=== PATIENT | female | born 1985 | race Caucasian/White ===

== ENCOUNTER 2017-09-12 18:20 | Emergency (ER) | payer BC ==
[~2017-09-12] VITALS: Ht 154.9 cm; Wt 170.1 kg
[~2017-09-12 18:20] MED LIST: LAMICTAL25 MG; LEVAQUIN500 MG PO; LEXAPRO10 MG; PROAIR HFA INH8.5 GM; SUDAFED30 MG
[2017-09-12 19:02] LABS: BASOPHILS % 0.4 % (0.0-1.0); EOSINOPHILS # (AUTO) 0.2 (0.0-0.4); HEMOGLOBIN 12.4 g/dL (12.0-16.0); LYMPHOCYTES # (AUTO) 2.5 (1.0-3.2); LYMPHOCYTES % 26.9 % (18.0-39.1); MEAN CORPUSCULAR HEMOGLOBIN 26.6 pg (28-32); MEAN CORPUSCULAR HGB CONC 31.8 g/dL (31-35); MEAN CORPUSCULAR VOLUME 83.5 fL (81-99); MONOCYTES # (AUTO) 0.5 (0.2-0.8); MONOCYTES % 5.1 % (4.4-11.3); NEUTROPHILS % 65.2 % (38.7-80.0); PLATELET COUNT 264 x10e3/uL (140-360); RED BLOOD COUNT 4.67 x10e6/uL (3.6-5.1); RED CELL DISTRIBUTION WIDTH 13.9 % (11.7-14.4)
[2017-09-12 19:18] LABS: ALANINE AMINOTRANSFERASE 18 IU/L (0-55); ALBUMIN 3.6 g/dL (3.5-5.0); ALKALINE PHOSPHATASE 75 IU/L (40-150); ANION GAP 13.2 mmol/L (8-16); BLOOD UREA NITROGEN 11 mg/dL (7-26); BUN/CREATININE RATIO 14 (6-25); CALCIUM 9.2 mg/dL (8.4-10.2); CARBON DIOXIDE 23 mmol/L (22-29); CHLORIDE 107 mmol/L (98-107); CREATININE, SERUM 0.76 mg/dL (0.57-1.11); EST GLOMERULAR FILTRATION RATE > 60 ML/MIN (60-); GLUCOSE 93 mg/dL (74-118); POTASSIUM 4.2 mmol/L (3.5-5.1); SODIUM 139 mmol/L (136-145)
[2017-09-12 19:19] LABS: AMYLASE 60 U/L (25-125); LIPASE 21 U/L (8-78)
[2017-09-12 20:53] LABS: BILIRUBIN,URINE NEGATIVE (NEGATIVE); KETONES,URINE NEGATIVE (NEGATIVE); LEUKOCYTE ESTERASE ,URINE NEGATIVE (NEGATIVE); NITRITE,URINE NEGATIVE (NEGATIVE); PROTEIN,URINE DIPSTICK NEGATIVE (NEGATIVE); URINE UROBILINOGEN 0.2 mg/dL (0.2 - 1)
[2017-09-12 20:56] LABS: CLARITY,URINE CLEAR (CLEAR); COLOR,URINE YELLOW (YELLOW)
[2017-09-12 21:00] LABS: PREGNANCY TEST, URINE NEGATIVE (NEGATIVE)
[2017-09-12 21:15] LABS: BACTERIA,URINE MODERATE /HPF; EPITHELIAL CELLS,URINE FEW /LPF; WBC,URINE (MAN) 0-5 /HPF (0-5)
--- NOTE | 2017-09-12 23:45 | Diagnostic Imaging Report ---
EXAM: CT ABDOMEN AND PELVIS with IV CONTRAST DATE: 09/12/2017 9:54 PM Time stamp on Exam: 2325 hours INDICATION: Right lower quadrant pain COMPARISON: None TECHNIQUE: The abdomen and pelvis were scanned using a multidetector helical scanner. Coronal and sagittal reformations were obtained. Routine protocol performed. IV Contrast: 100 cc of 7370 Oral Contrast: Water CTDIvol has been reviewed. It is below the limits set by the Radiation Protocol Committee (RPC). FINDINGS: LOWER THORAX: No consolidations LIVER: No masses BILIARY: Cholecystectomy. No ductal dilation. SPLEEN: No masses PANCREAS: No masses ADRENALS: No nodules KIDNEYS: Symmetric perfusion. No enhancing masses. No hydronephrosis. Punctate nonobstructing stone in the inferior pole of the left kidney. GI TRACT: No distention, wall thickening or evidence of obstruction. Normal appendix. VESSELS: Unremarkable PERITONEUM/RETROPERITONEUM: No free air or fluid LYMPH NODES: No lymphadenopathy REPRODUCTIVE ORGANS: Unremarkable BLADDER: Unremarkable SOFT TISSUES: Unremarkable BONES: No suspicious bone lesions. IMPRESSION: No CT findings to explain patient's right lower quadrant pain. No evidence of appendicitis. Signed by: Dr. Sushma Felipe M.D. on 09/12/2017 11:41 PM
[2017-09-13] MEDS ORDERED: SODIUM CHLORIDE 0.9% 50ML 50 ML ONE (00:22)
[2017-09-13] MEDS ORDERED: IOPAMIDOL 370 MG/ML 200 ML INFUS..BTL INJ ONE (00:22)
[2017-09-13 00:27] VITALS: BP 123/74
== END 2017-09-13 00:31 | disposition home or self-care (01) ==
LOC: ER 18:20
DX: R10.31 Right lower quadrant pain (principal); R11.2 Nausea with vomiting, unspecified; S39.011A Strain of muscle, fascia and tendon of abdomen, initial encounter; I10 Essential (primary) hypertension; K31.89 Other diseases of stomach and duodenum
CPT/HCPCS: 36415; 74177; 80053; 81001; 81025; 82150; 83690; 85025; 87086; 99283; Q9967

== ENCOUNTER 2018-06-04 12:40 | Observation (INO) | payer BC ==
[~2018-06-04] VITALS: Ht 154.9 cm; Wt 156.3 kg
[2018-06-04] MEDS ORDERED: SODIUM CHLORIDE 0.9% 1000ML 1,000 ML IV STA (12:53)
[2018-06-04] MEDS ORDERED: ASPIRIN 81 MG CHEW TAB PO ONE (13:00)
[2018-06-04] MEDS ORDERED: NITROGLYCERIN 0.4 MG SUBL SL PRN ×2 (13:00→17:15)
--- NOTE | 2018-06-04 13:33 | Diagnostic Imaging Report ---
EXAM: XR CHEST 1 VIEW DATE: 06/04/2018 12:53 PM INDICATION: Chest pain COMPARISON: None FINDINGS: Lines and Tubes: None Heart and Mediastinum: No acute cardiomediastinal findings. Lungs and Pleura: No significant pleural effusion, pneumothorax, or focal consolidation. Bones and Soft Tissues: No acute findings. IMPRESSION: 1. No acute cardiopulmonary findings. Signed by: Dr. Kahlil Melendez MD on 06/04/2018 1:29 PM
[2018-06-04 14:12] LABS: BASOPHILS % 0.4 % (0.0-1.0); EOSINOPHILS # (AUTO) 0.1 (0.0-0.4); EOSINOPHILS % 1.2 % (0.0-6.0); HEMATOCRIT 35.4 % (34.2-44.1); HEMOGLOBIN 11.8 g/dL (12.0-16.0); LYMPHOCYTES # (AUTO) 2.2 (1.0-3.2); LYMPHOCYTES % 24.9 % (18.0-39.1); MEAN CORPUSCULAR HEMOGLOBIN 28.8 pg (28-32); MEAN CORPUSCULAR HGB CONC 33.3 g/dL (31-35); MEAN CORPUSCULAR VOLUME 86.3 fL (81-99); MONOCYTES # (AUTO) 0.5 (0.2-0.8); MONOCYTES % 5.7 % (4.4-11.3); NEUTROPHILS # (AUTO) 6.1 (2.1-6.9); NEUTROPHILS % 67.2 % (38.7-80.0); PLATELET COUNT 278 x10e3/uL (140-360); RED CELL DISTRIBUTION WIDTH 12.8 % (11.7-14.4)
[2018-06-04 14:30] LABS: INR 1.14; PROTHROMBIN TIME 13.7 seconds (11.9-14.5)
[2018-06-04 14:31] LABS: PARTIAL THROMBOPLASTIN TIME 30.3 seconds (23.8-35.5)
[2018-06-04 14:37] LABS: ALANINE AMINOTRANSFERASE 17 IU/L (0-55); ALBUMIN 3.6 g/dL (3.5-5.0); ALBUMIN/GLOBULIN RATIO 1.1 (0.8-2.0); ALKALINE PHOSPHATASE 62 IU/L (40-150); ANION GAP 14.9 mmol/L (8-16); BLOOD UREA NITROGEN 9 mg/dL (7-26); BUN/CREATININE RATIO 12 (6-25); CALCIUM 9.3 mg/dL (8.4-10.2); CARBON DIOXIDE 24 mmol/L (22-29); CHLORIDE 103 mmol/L (98-107); CREATINE KINASE 62 IU/L (29-168); CREATININE, SERUM 0.73 mg/dL (0.57-1.11); EST GLOMERULAR FILTRATION RATE > 60 ML/MIN (60-); GLUCOSE 90 mg/dL (74-118); SODIUM 139 mmol/L (136-145)
[2018-06-04 14:52] LABS: POTASSIUM 2.9 mmol/L (3.5-5.1)
[2018-06-04] MEDS ORDERED: POTASSIUM CHLORIDE 20MEQ/15ML UDC PO ONE (15:00)
[2018-06-04] MEDS ORDERED: MORPHINE SULFATE 2 MG/ML SYR IV PRN (17:15)
[2018-06-04] MEDS ORDERED: ONDANSETRON HCL INJ 2 MG/ML VIAL IV PRN (17:15)
[2018-06-04 17:55] VITALS: BP 129/79
[2018-06-04 18:17] VITALS: BP 129/79
[2018-06-04] MEDS: SODIUM CHLORIDE 0.9% 1000ML 1,000 ML IV SCH (18:59)
[2018-06-04] MEDS: FAMOTIDINE 20 MG TAB PO SCH (18:59)
[2018-06-04] MEDS: NITROGLYCERIN 2% OINT 1 GM PKT TOP SCH (18:59)
[2018-06-04 19:25] VITALS: BP 113/64
[2018-06-04 20:27] LABS: CREATINE KINASE MB 0.3 ng/mL (0-5.0)
[2018-06-04] MEDS ORDERED: ACETAMINOPHEN 325 MG TAB PO PRN (21:45)
[2018-06-04] MEDS ORDERED: ATENOLOL 50 MG TAB PO SCH (21:45)
[2018-06-04] MEDS ORDERED: ACETAMINOPHEN 325 MG TAB ONE (22:15)
[2018-06-04] MEDS ORDERED: ATENOLOL 50 MG TAB ONE (22:15)
[2018-06-04] MEDS ORDERED: ATENOLOL50 MG PO (22:41)
[2018-06-05 00:23] VITALS: BP 92/54
[2018-06-05 04:00] VITALS: BP 102/56
[2018-06-05] MEDS: SODIUM CHLORIDE 0.9% 1000ML 1,000 ML IV SCH (04:10)
[2018-06-05 05:27] LABS: BASOPHILS % 0.4 % (0.0-1.0); EOSINOPHILS # (AUTO) 0.1 (0.0-0.4); EOSINOPHILS % 1.3 % (0.0-6.0); HEMATOCRIT 32.6 % (34.2-44.1); HEMOGLOBIN 10.5 g/dL (12.0-16.0); LYMPHOCYTES # (AUTO) 2.1 (1.0-3.2); LYMPHOCYTES % 30.4 % (18.0-39.1); MEAN CORPUSCULAR HEMOGLOBIN 28.5 pg (28-32); MEAN CORPUSCULAR HGB CONC 32.2 g/dL (31-35); MEAN CORPUSCULAR VOLUME 88.6 fL (81-99); MONOCYTES # (AUTO) 0.4 (0.2-0.8); MONOCYTES % 6.2 % (4.4-11.3); NEUTROPHILS # (AUTO) 4.1 (2.1-6.9); NEUTROPHILS % 61.3 % (38.7-80.0); PLATELET COUNT 225 x10e3/uL (140-360); RED BLOOD COUNT 3.68 x10e6/uL (3.6-5.1); RED CELL DISTRIBUTION WIDTH 13.1 % (11.7-14.4)
[2018-06-05] MEDS: NITROGLYCERIN 2% OINT 1 GM PKT TOP SCH ×2 (05:36)
[2018-06-05] MEDS: FAMOTIDINE 20 MG TAB PO SCH (05:36)
[2018-06-05 05:44] LABS: ANION GAP 13.1 mmol/L (8-16); BLOOD UREA NITROGEN 9 mg/dL (7-26); BUN/CREATININE RATIO 13 (6-25); CALCIUM 8.6 mg/dL (8.4-10.2); CARBON DIOXIDE 24 mmol/L (22-29); CHLORIDE 108 mmol/L (98-107); CHOL/HDL RATIO 4.4 (3.0-3.6); CHOLESTEROL 140 MD/DL (0-199); CREATININE, SERUM 0.68 mg/dL (0.57-1.11); EST GLOMERULAR FILTRATION RATE > 60 ML/MIN (60-); GLUCOSE 98 mg/dL (74-118); HDL CHOLESTEROL 32 MG/DL (40-60); LDL CHOLESTEROL 83 MG/DL (60-130); MAGNESIUM 1.8 MG/DL (1.3-2.1); POTASSIUM 3.1 mmol/L (3.5-5.1); SODIUM 142 mmol/L (136-145); TRIGLYCERIDES 123 MG/DL (0-149)
[2018-06-05 06:18] LABS: CREATINE KINASE MB 0.3 ng/mL (0-5.0)
[2018-06-05 07:20] VITALS: BP 121/73
[2018-06-05] MEDS ORDERED: POTASSIUM CHLORIDE 20 MEQ TAB CR PO SCH (09:00)
[2018-06-05] MEDS ORDERED: ASPIRIN 81 MG ENTERIC COATED PO SCH (09:00)
[2018-06-05 09:09] VITALS: BP 121/73
[2018-06-05] MEDS ORDERED: ATENOLOL 50 MG TAB PO SCH (10:15)
--- NOTE | 2018-06-05 11:29 | Consultation ---
DATE OF CONSULTATION: CARDIOLOGY CONSULTATION REFERRING PHYSICIAN: Dr. Correa. REASON FOR CONSULTATION: Chest pain. HISTORY OF PRESENT ILLNESS: This is a 33-year-old woman who has a history of morbid obesity, tachycardia/premature ventricular complexes on atenolol, asthma, and hypertension. She presented to the emergency department with chest discomfort. The patient states that her symptoms have been present for the approximately 3 to 4 days, are intermittent, occasionally with rest, occasionally with exertion, described as a heaviness with some tingling in her fingers and feet. Currently she is asymptomatic and feeling well. The patient was on phentermine at home and was told to cut this in half by her primary care provider when she started exhibiting symptoms. She has no history of myocardial infarctions, heart failure or syncopal episodes. She reportedly had an episode of tachycardia and premature ventricular complexes per self report and was placed on atenolol with relief. She states she had a prior stress test and echocardiogram done approximately 8 years ago, which were reportedly normal. Upon arrival here to the emergency department, the patient was noted to be hypokalemic with 3 sets of negative cardiac enzymes. REVIEW OF SYSTEMS: A 12-point review of systems was conducted and was negative other than that in the HPI. PAST MEDICAL HISTORY: Asthma, hypertension, morbid obesity, tachycardia, premature ventricular complexes. FAMILY HISTORY: No premature coronary artery disease or sudden cardiac . SOCIAL HISTORY: No illicit drug use, alcohol use or tobacco use. ALLERGIES: MULTIPLE. SEE ALLERGY LIST. MEDICATIONS: See medication reconciliation form. PAST SURGICAL HISTORY: None recent. PHYSICAL EXAMINATION VITAL SIGNS: She is afebrile. Heart rate is 73. Respirations are 18. Blood pressure 121/73. Oxygen saturation is 98% on room air. GENERAL: She is a morbidly obese, woman lying comfortably in bed. Alert and oriented times 3. HEAD: Normocephalic and atraumatic. EYES: The extraocular muscles are intact. Conjunctivae are clear. NECK: No JVD. No bruits. CARDIOVASCULAR: Regular rate and rhythm. Normal S1 and S2. No murmur is appreciated. LUNGS: Distant breath sounds due to body habitus. ABDOMEN: Soft, obese, nontender. EXTREMITIES: Trace edema. VASCULAR: There are 2+ pulses. SKIN: Warm, dry and intact. NEUROLOGIC: No focal deficits noted. Cranial nerves are grossly intact. PSYCHIATRIC: Normal mood and affect. LABORATORY DATA: White blood cell count of 6.7, hemoglobin 10.5, platelets 225. INR is 1.14. Current basic metabolic panel shows sodium 142, potassium 3.1, creatinine 0.68. Presenting potassium was 2.9, magnesium 1.8. Cardiac enzymes are negative times 3 sets. BNP is 15.7. LDL was 83. A 12-lead electrocardiogram shows normal sinus rhythm. Chest x-ray shows no acute cardiopulmonary abnormality. Preliminary 2-D echocardiogram report: Left ventricle appears normal in size with overall normal systolic function. The estimated left ventricular ejection fraction is 55% to 60%. No significant valvular abnormalities were visualized on limited images. IMPRESSION AND RECOMMENDATIONS 1. Precordial pain. The patient's symptoms are atypical and likely noncardiac in origin. Potentially, this could be related to her recent discontinuation of phentermine. She also has morbid obesity and some episodes of gastroesophageal reflux disease in the past. Her 12-lead electrocardiogram showed no ST changes, and she has 3 sets of negative cardiac enzymes. Her BNP was within normal limits. Her chest x-ray showed no cardiomegaly or pulmonary edema. Her 2-D echocardiogram shows preserved left ventricular systolic function. No further inpatient cardiac workup is needed at this point in time. 2. Cardiac arrhythmia. The patient states she had tachycardia and PVCs in the past. None reported on current admission. Would continue atenolol 25 mg b.i.d. 3. Morbid obesity. Discussed diet and exercise for weight loss with the patient. 4. Hypokalemia. Treatment per primary team and replace to a level greater than 4. Thank you for this consultation. The patient may be discharged from a cardiovascular standpoint with close outpatient followup with her primary care provider and myself for outpatient stress test. Job#: [id number]
[2018-06-05 12:00] VITALS: BP 130/65
[2018-06-05 16:00] VITALS: BP 123/57
[2018-06-06] MEDS ORDERED: ALBUTEROL SULFATE HFA 8GM INHALATION AEROSOL INH SCH (06:00)
== END 2018-06-05 16:45 | disposition home or self-care (01) ==
LOC: ER 12:40 → ERHOLD 17:25 → MED/SURG3 17:47
DX: R07.2 Precordial pain (principal); E87.6 Hypokalemia; I10 Essential (primary) hypertension; J45.909 Unspecified asthma, uncomplicated; E66.01 Morbid (severe) obesity due to excess calories; Z82.49 Family history of ischemic heart disease and other diseases of the circulatory system; I49.3 Ventricular premature depolarization; K21.9 Gastro-esophageal reflux disease without esophagitis; Z88.0 Allergy status to penicillin; Z88.2 Allergy status to sulfonamides; Z88.8 Allergy status to other drugs, medicaments and biological substances; Z68.44 Body mass index [BMI] 60.0-69.9, adult
CPT/HCPCS: 36415 ×2; 71045; 80048; 80053; 80061; 82550 ×2; 82553 ×2; 83735; 83880; 84484 ×2; 85025 ×2; 85610; 85730; 93005; 93306; 99284; G0378 ×2; J7030 ×2

== ENCOUNTER 2019-04-30 14:12 | Emergency (ER) | payer BC ==
[~2019-04-30] VITALS: Ht 154.9 cm; Wt 156.0 kg
[~2019-04-30 14:12] MED LIST changes: +ATENOLOL50 MG PO
--- NOTE | 2019-04-30 15:00 | NUR ---
PATIENT TO ROOM 11
[2019-04-30 15:20] LABS: BASOPHILS % 0.6 % (0.0-1.0); EOSINOPHILS # (AUTO) 0.2 (0.0-0.4); EOSINOPHILS % 2.9 % (0.0-6.0); HEMATOCRIT 36.9 % (34.2-44.1); HEMOGLOBIN 12.4 g/dL (12.0-16.0); LYMPHOCYTES # (AUTO) 1.7 (1.0-3.2); MEAN CORPUSCULAR HEMOGLOBIN 29.1 pg (28-32); MEAN CORPUSCULAR HGB CONC 33.6 g/dL (31-35); MEAN CORPUSCULAR VOLUME 86.6 fL (81-99); MONOCYTES # (AUTO) 0.6 (0.2-0.8); NEUTROPHILS # (AUTO) 4.6 (2.1-6.9); NEUTROPHILS % 64.1 % (38.7-80.0); PLATELET COUNT 248 x10e3/uL (140-360); RED BLOOD COUNT 4.26 x10e6/uL (3.6-5.1)
[2019-04-30 15:38] LABS: ALANINE AMINOTRANSFERASE 31 IU/L (0-55); ALBUMIN 3.5 g/dL (3.5-5.0); ALBUMIN/GLOBULIN RATIO 1.1 (0.8-2.0); ALKALINE PHOSPHATASE 78 IU/L (40-150); ANION GAP 15.8 mmol/L (8-16); BLOOD UREA NITROGEN 13 mg/dL (7-26); BUN/CREATININE RATIO 18 (6-25); CALCIUM 9.1 mg/dL (8.4-10.2); CARBON DIOXIDE 22 mmol/L (22-29); CHLORIDE 105 mmol/L (98-107); CREATININE, SERUM 0.73 mg/dL (0.57-1.11); EST GLOMERULAR FILTRATION RATE > 60 ML/MIN (60-); GLUCOSE 125 mg/dL (74-118); POTASSIUM 3.8 mmol/L (3.5-5.1); SODIUM 139 mmol/L (136-145)
[2019-04-30 15:40] LABS: BILIRUBIN,URINE NEGATIVE (NEGATIVE); CLARITY,URINE CLOUDY (CLEAR); COLOR,URINE ORANGE (YELLOW); KETONES,URINE NEGATIVE (NEGATIVE); LEUKOCYTE ESTERASE ,URINE SMALL (NEGATIVE); NITRITE,URINE POSITIVE (NEGATIVE); URINE UROBILINOGEN 4 mg/dL (0.2 - 1)
[2019-04-30 15:41] LABS: PROTEIN,URINE DIPSTICK 3+ (NEGATIVE)
[2019-04-30] MEDS ORDERED: KETOROLAC TROMETHAMINE 30 MG/ML VIAL IV STA (15:49)
[2019-04-30 15:54] LABS: BACTERIA,URINE MODERATE /HPF; EPITHELIAL CELLS,URINE RARE /LPF; RBC,URINE 21-50 /HPF (0-5)
[2019-04-30] MEDS ORDERED: SODIUM CHLORIDE 0.9% 1000ML 1,000 ML IV SCH (16:00)
--- NOTE | 2019-04-30 16:30 | Diagnostic Imaging Report ---
EXAM: CT Abdomen and Pelvis WITHOUT intravenous contrast INDICATION: Flank pain COMPARISON: CT abdomen pelvis of 09/12/2017 TECHNIQUE: Abdomen and pelvis were scanned utilizing a multidetector helical scanner from the lung base to the pubic symphysis without administration of IV contrast. Coronal and sagittal reformations were obtained. IV CONTRAST: None ORAL CONTRAST: None COMPLICATIONS: None RADIATION DOSE: Total DLP: 1305.1 mGy*cm Dose modulation, iterative reconstruction, and/or weight based adjustment of the mA/kV was utilized to reduce the radiation dose to as low as reasonably achievable. FINDINGS: Image quality is severely limited by patient body habitus as the patient touches the gantry on both sides resulting in significant artifact. LOWER THORAX: Normal. HEPATOBILIARY: No focal liver lesion. Status post cholecystectomy. SPLEEN: No splenomegaly. PANCREAS: No focal masses or ductal dilatation. ADRENALS: No adrenal nodules. KIDNEYS/URETERS: No hydronephrosis. Nonobstructing 4 mm left lower pole calculus. Left internal nephroureteral stent in good position. PELVIC ORGANS/BLADDER: Status post hysterectomy. PERITONEUM / RETROPERITONEUM: No free air or fluid. LYMPH NODES: No lymphadenopathy. VESSELS: Unremarkable. GI TRACT: No distention or wall thickening. BONES AND SOFT TISSUES: No acute osseous injury. No suspicious lytic or blastic lesions. IMPRESSION: Nonobstructive 4 mm left lower pole renal calculus. No hydronephrosis. Left internal nephroureteral stent in place. Signed by: Percy Samaniego MD on 04/30/2019 4:27 PM
== END 2019-04-30 17:22 | disposition home or self-care (01) ==
LOC: ER 14:12
DX: R30.0 Dysuria (principal); N30.91 Cystitis, unspecified with hematuria; I10 Essential (primary) hypertension
CPT/HCPCS: 36415; 74176; 80053; 81001; 81025; 85025; 87086; 87186; 99284; J1885; J7030

== ENCOUNTER 2020-03-13 15:32 | Emergency (ER) | payer BC ==
[~2020-03-13] VITALS: Ht 154.9 cm; Wt 156.0 kg
[2020-03-13 17:56] LABS: CLARITY,URINE SL CLOUDY (CLEAR); COLOR,URINE ORANGE (YELLOW)
[2020-03-13 17:57] LABS: BILIRUBIN,URINE SMALL (NEGATIVE); KETONES,URINE TRACE (NEGATIVE); LEUKOCYTE ESTERASE ,URINE NEGATIVE (NEGATIVE); NITRITE,URINE POSITIVE (NEGATIVE); PREGNANCY TEST, URINE NEGATIVE (NEGATIVE); PROTEIN,URINE DIPSTICK 1+ (NEGATIVE); URINE UROBILINOGEN 2 mg/dL (0.2 - 1)
[2020-03-13 18:11] LABS: BACTERIA,URINE RARE /HPF; EPITHELIAL CELLS,URINE MANY /LPF
--- NOTE | 2020-03-13 19:01 | Emergency Department Note ---
History of Present Illnes History of Present Illness Chief Complaint: Genitourinary History of Present Illness This is a 34 year old female with generalized L flank pain since Mo nday 03/10/2020. (+) Fevers. noted edema b/l UE and face yesterday . Historian: Patient Arrival Mode: Car Onset (how long ago): day(s) (4) Radiation: Reports flank (left flank ) Severity: moderate Onset quality: gradual Duration (how long): day(s) (4) Timing of current episode: constant Progression: worsening Chronicity: new Context: Reports recent illness Relieving factors: none Exacerbating factors: none Associated symptoms: Reports denies other symptoms Treatments prior to arrival: none Past Medical/Family History Physician Review I have reviewed the patient's past medical and family history. Any updates have been documented here. Past Medical History Recent Fever: No Clinical Suspicion of Infectio: No New/Unexplained Change in Ment: No Past Medical History: Hypertension, Asthma, Kidney Stones, UTI's, Migraines Other Medical History: ABD ULCER ASthma MORBID OBESTITY [id number] Past Surgical History: Cholecysctectomy, Hysterectomy, Other Surgery: C-SECTIONS SINUS SURGERY Social History Smoking Cessation: Never Smoker Alcohol Use: None Any Illegal Drug Use: No Other Last Tetanus: UTD Review of Systems Review of Systems Constitutional: Reports fever EENTM: Reports no symptoms Cardiovascular: Reports no symptoms Respiratory: Reports no symptoms Gastrointestinal: Reports no symptoms Genitourinary: Reports dysuria, Reports pain (L flank pain) Musculoskeletal: Reports no symptoms Integumentary: Reports no symptoms Neurological: Reports no symptoms Psychological: Reports no symptoms Endocrine: Reports no symptoms Hematological/Lymphatic: Reports no symptoms Physical Exam Related Data Allergies: Coded Allergies: cephalexin (Verified Allergy, Intermediate, HIVES, 04/30/19) erythromycin base (Verified Allergy, Intermediate, HIVES, 04/30/19) meloxicam (Verified Allergy, Intermediate, HIVES, 04/30/19) methylprednisolone (Verified Allergy, Intermediate, SWELLING, 04/30/19) Sulfa (Sulfonamide Antibiotics) (Verified Allergy, Mild, HIVES, 04/30/19) penicillin (Verified Allergy, Mild, HIVES, 04/30/19) sumatriptan (Verified Allergy, Unknown, 04/30/19) doxycycline (Verified Adverse Reaction, Mild, VOMITING, 04/30/19) Triage Vital Signs Vital Signs Date Time Temp Pulse Resp B/P (MAP) Pulse Ox O2 Delivery O2 Flow Rate FiO2 03/13/20 16:54 98.9 103 16 158/99 97 Vital signs reviewed: Yes Physical Exam CONSTITUTIONAL Constitutional: Present well-developed, Present well-nourished HENT HENT: Present normocephalic, Present atraumatic, Present oropharynx clear/moist, Present nose normal HENT L/R: Present left ext ear normal, Present right ext ear normal EYES Eyes: Reports PERRL, Reports conjunctivae normal NECK Neck: Present ROM normal PULMONARY Pulmonary: Present effort normal, Present breath sounds normal CARDIOVASCULAR Cardiovascular: Present regular rhythm, Present heart sounds normal, Present capillary refill normal, Present normal rate GASTROINTESTINAL Abdominal: Present soft, Present nontender, Present bowel sounds normal, Present left CVA tenderness GENITOURINARY Genitourinary: Present exam deferred SKIN Skin: Present warm, Present dry MUSCULOSKELETAL Musculoskeletal: Present ROM normal NEUROLOGICAL Neurological: Present alert, Present oriented x 3, Present no gross motor or sensory deficits PSYCHOLOGICAL Psychological: Present mood/affect normal, Present judgement normal Results Laboratory Laboratory Laboratory Tests Test 03/13/20 16:57 Urine Color White (YELLOW) Urine Clarity Sl cloudy (CLEAR) Urine pH 6 (5 - 7) Urine Specific [place] 1.025 (1.010-1.025) Urine Protein 1+ (NEGATIVE) Urine Glucose (UA) 1+ (NEGATIVE) Urine Ketones Trace (NEGATIVE) Urine Blood Negative (NEGATIVE) Urine Nitrite Positive (NEGATIVE) Urine Bilirubin Small (NEGATIVE) Urine Urobilinogen 2 mg/dL (0.2 - 1) Urine Leukocyte Esterase Negative (NEGATIVE) Urine RBC None /HPF (0-5) Urine WBC None /HPF (0-5) Urine Epithelial Cells Many /LPF (NONE) Urine Bacteria Rare /HPF (NONE) Urine Coarse Granular Casts 1-5 (0) Urine Test Negative (NEGATIVE) Lab results reviewed: Yes Imaging Imaging results reviewed: Yes Impressions [place] [id number] Patient Name: EZEQUIEL DUENAS MR #: [id number] : 1985 Age/Sex: 34/F Req #: [id number] Adm Physician: Ordered by: DAVEY BATISTA DO Report #: [id number] Location: ER Room/Bed: Procedure: [id number] CT/CT ABDOMEN/PELVIS WO Exam Date: 03/13/20 Exam Time: 1925 REPORT STATUS: Signed CT Abdomen and Pelvis without contrast INDICATION: Chronic UTI, history of stones and left ureteral stent, ^L flank pain ^[id number] ^1925 TECHNIQUE: Thin collimation axial images obtained from the diaphragm to the level of the pubic symphysis without nonionic intravenous contrast. Dose reduction techniques used: Automated exposure control, adjustment of the mAs and/or kVp according to patient size, standardized low-dose protocol, and/or iterative reconstruction technique. RADIATION DOSE: Total DLP: 2853.05 mGy*cm Estimated effective dose: (DLP x 0.015 x size factor) mSv CTDIvol has been reviewed. It is below the limits set by the Radiation Protocol Committee (RPC). COMPARISON: CT abdomen/pelvis 04/30/2019. ABDOMEN FINDINGS: Images are compromised due to patient's generous body habitus Lung Bases: Clear. The visualized portion of the mediastinum is normal. Liver: Decreased attenuation suggestive of steatosis. No mass. Gallbladder: Absent. No ductal dilatation. Pancreas: Normal attenuation without mass. Spleen: Normal size without mass. Adrenal Glands: No evidence for mass. Kidneys: Right: No renal calculus. No cortical mass or hydronephrosis Left: Lower pole calculus measures 3 mm. No cortical mass or hydronephrosis Lymph Nodes: No lymphadenopathy. Aorta: Normal in diameter. PELVIS FINDINGS: Bowel: Stomach: Normal. Small Bowel: Normal in caliber with normal wall thickness. Large Bowel: Normal in caliber with normal wall thickness. Appendix: Normal. Bladder: Normal. Ureters: Left ureteral stent has been removed. No ureteral dilatation or calculus. The uterus is absent. A cyst or dominant follicle in the left ovary is no longer visualized. Peritoneum/retroperitoneum: No free fluid or fluid collection. Bones: Unremarkable for age. IMPRESSION: 1. Left intrarenal calculus. No obstructive uropathy. 2. No evidence for bowel obstruction or inflammation. 3. Steatosis. Signed by: Dr. Sally Biggs MD on 03/13/2020 7:37 PM Dictated By: SALLY BIGGS MD 34 Transcribed By: AMY on 03/13/201936 COPY TO: DAVEY BATISTA DO~ Assessment & Plan Medical Decision Making MDM Left flank pain CT abd/pelvis : non-acute Diff dx : pyelonephritis, kidney stone, diverticulitis, cancer, Assessment & Plan Final Impression: (1) Left flank discomfort (2) Edema of both upper arms Depart Disposition: HOME, SELF-CARE Last Vital Signs Date Time Temp Pulse Resp B/P (MAP) Pulse Ox O2 Delivery O2 Flow Rate FiO2 03/13/20 16:54 98.9 103 16 158/99 97 Home Meds Reported Medications Atenolol (ATENOLOL) 50 Mg Tablet, 25 MG PO Q12H 06/04/18 Albuterol Sulf* (PROAIR HFA INHALER*) 8.5 Gm Inh 01/01/14 Medications in the ED Ketorolac Tromethamine 60 mg ONCE ONCE IM Last administered on 03/13/20at 19:10; Admin Dose 60 MG; Start 03/13/20 at 19:15; Stop 03/13/20 at 19:23; Status DC Ketorolac Tromethamine STK-MED ONCE .ROUTE ; Start 03/13/20 at 19:13; Stop 03/13/20 at 19:08; Status DC DAVEY BATISTA DO Mar 13, 2020 19:01
[2020-03-13] MEDS ORDERED: KETOROLAC TROMETHAMINE 30 MG/ML VIAL ONE (19:13)
[2020-03-13 19:14] LABS: BASOPHILS % 0.4 % (0.0-1.0); EOSINOPHILS # (AUTO) 0.2 (0.0-0.4); EOSINOPHILS % 1.9 % (0.0-6.0); HEMATOCRIT 39.4 % (34.2-44.1); HEMOGLOBIN 12.5 g/dL (12.0-16.0); LYMPHOCYTES # (AUTO) 2.4 (1.0-3.2); LYMPHOCYTES % 24.2 % (18.0-39.1); MEAN CORPUSCULAR HEMOGLOBIN 28.2 pg (28-32); MEAN CORPUSCULAR HGB CONC 31.7 g/dL (31-35); MEAN CORPUSCULAR VOLUME 88.7 fL (81-99); MONOCYTES # (AUTO) 0.7 (0.2-0.8); MONOCYTES % 6.8 % (4.4-11.3); NEUTROPHILS # (AUTO) 6.7 (2.1-6.9); NEUTROPHILS % 66.3 % (38.7-80.0); PLATELET COUNT 258 x10e3/uL (140-360); RED BLOOD COUNT 4.44 x10e6/uL (3.6-5.1); RED CELL DISTRIBUTION WIDTH 13.2 % (11.7-14.4)
[2020-03-13] MEDS ORDERED: KETOROLAC TROMETHAMINE 60 MG/2 ML VIAL IM ONE (19:15)
[2020-03-13 19:28] LABS: ALANINE AMINOTRANSFERASE 17 IU/L (0-55); ALBUMIN 3.6 g/dL (3.5-5.0); ALKALINE PHOSPHATASE 77 IU/L (40-150); ANION GAP 15.1 mmol/L (8-16); BLOOD UREA NITROGEN 14 mg/dL (7-26); BUN/CREATININE RATIO 19 (6-25); CALCIUM 9.1 mg/dL (8.4-10.2); CARBON DIOXIDE 20 mmol/L (22-29); CHLORIDE 108 mmol/L (98-107); CREATININE, SERUM 0.74 mg/dL (0.57-1.11); EST GLOMERULAR FILTRATION RATE > 60 ML/MIN (60-); GLUCOSE 94 mg/dL (74-118); POTASSIUM 4.1 mmol/L (3.5-5.1); SODIUM 139 mmol/L (136-145)
--- NOTE | 2020-03-13 19:40 | Diagnostic Imaging Report ---
CT Abdomen and Pelvis without contrast INDICATION: Chronic UTI, history of stones and left ureteral stent, ^L flank pain ^20200313 ^192 TECHNIQUE: Thin collimation axial images obtained from the diaphragm to the level of the pubic symphysis without nonionic intravenous contrast. Dose reduction techniques used: Automated exposure control, adjustment of the mAs and/or kVp according to patient size, standardized low-dose protocol, and/or iterative reconstruction technique. RADIATION DOSE: Total DLP: 2853.05 mGy*cm Estimated effective dose: (DLP x 0.015 x size factor) mSv CTDIvol has been reviewed. It is below the limits set by the Radiation Protocol Committee (RPC). COMPARISON: CT abdomen/pelvis 04/30/2019. ABDOMEN FINDINGS: Images are compromised due to patient's generous body habitus Lung Bases: Clear. The visualized portion of the mediastinum is normal. Liver: Decreased attenuation suggestive of steatosis. No mass. Gallbladder: Absent. No ductal dilatation. Pancreas: Normal attenuation without mass. Spleen: Normal size without mass. Adrenal Glands: No evidence for mass. Kidneys: Right: No renal calculus. No cortical mass or hydronephrosis Left: Lower pole calculus measures 3 mm. No cortical mass or hydronephrosis Lymph Nodes: No lymphadenopathy. Aorta: Normal in diameter. PELVIS FINDINGS: Bowel: Stomach: Normal. Small Bowel: Normal in caliber with normal wall thickness. Large Bowel: Normal in caliber with normal wall thickness. Appendix: Normal. Bladder: Normal. Ureters: Left ureteral stent has been removed. No ureteral dilatation or calculus. The uterus is absent. A cyst or dominant follicle in the left ovary is no longer visualized. Peritoneum/retroperitoneum: No free fluid or fluid collection. Bones: Unremarkable for age. IMPRESSION: 1. Left intrarenal calculus. No obstructive uropathy. 2. No evidence for bowel obstruction or inflammation. 3. Steatosis. Signed by: Dr. Celestino Biggs MD on 03/13/2020 7:37 PM
[2020-03-13 20:19] VITALS: BP 128/83
== END 2020-03-13 20:25 | disposition home or self-care (01) ==
LOC: ER 15:32
DX: M54.5 Low back pain (principal); R60.9 Edema, unspecified; N20.0 Calculus of kidney; I10 Essential (primary) hypertension; E66.01 Morbid (severe) obesity due to excess calories
CPT/HCPCS: 36415; 74176; 80053; 81001; 81025; 83880; 85025; 99284; J1885

== ENCOUNTER 2021-10-15 14:07 | Emergency (ER) | payer BC ==
[~2021-10-15] VITALS: Ht 154.9 cm; Wt 156.0 kg
[2021-10-15 14:43] LABS: BASOPHILS % 0.5 % (0.0-1.0); EOSINOPHILS # (AUTO) 0.2 (0.0-0.4); EOSINOPHILS % 2.6 % (0.0-6.0); HEMATOCRIT 39.6 % (34.2-44.1); HEMOGLOBIN 12.3 g/dL (12.0-16.0); LYMPHOCYTES # (AUTO) 1.7 (1.0-3.2); LYMPHOCYTES % 25.9 % (18.0-39.1); MEAN CORPUSCULAR HEMOGLOBIN 29.1 pg (28-32); MEAN CORPUSCULAR HGB CONC 31.1 g/dL (31-35); MEAN CORPUSCULAR VOLUME 93.8 fL (81-99); MONOCYTES # (AUTO) 0.4 (0.2-0.8); MONOCYTES % 5.9 % (4.4-11.3); NEUTROPHILS # (AUTO) 4.2 (2.1-6.9); NEUTROPHILS % 64.8 % (38.7-80.0); PLATELET COUNT 266 x10e3/uL (140-360); RED BLOOD COUNT 4.22 x10e6/uL (3.6-5.1); RED CELL DISTRIBUTION WIDTH 14.5 % (11.7-14.4)
[2021-10-15 14:59] LABS: ALBUMIN 3.7 g/dL (3.5-5.0); ANION GAP 13.4 mmol/L (8-16); CALCIUM 9.2 mg/dL (8.4-10.2); CREATININE, SERUM 0.76 mg/dL (0.57-1.11); POTASSIUM 4.4 mmol/L (3.5-5.1)
[2021-10-15 15:00] LABS: LIPASE 23 U/L (8-78)
[2021-10-15 17:06] LABS: CLARITY,URINE CLEAR (CLEAR); COLOR,URINE YELLOW (YELLOW); KETONES,URINE NEGATIVE (NEGATIVE); LEUKOCYTE ESTERASE ,URINE NEGATIVE (NEGATIVE); NITRITE,URINE NEGATIVE (NEGATIVE); PROTEIN,URINE DIPSTICK NEGATIVE (NEGATIVE); URINE UROBILINOGEN 0.2 mg/dL (0.2 - 1)
[2021-10-15 17:22] LABS: BACTERIA,URINE MODERATE /HPF; EPITHELIAL CELLS,URINE MANY /LPF
[2021-10-15] MEDS ORDERED: DICYCLOMINE HCL20 MG PO (17:30)
[2021-10-15] MEDS ORDERED: ONDANSETRON HCL8 MG PO (17:30)
== END 2021-10-15 17:36 | disposition home or self-care (01) ==
LOC: ER 15:13
DX: R05.9 Cough, unspecified (principal); J18.9 Pneumonia, unspecified organism; R11.0 Nausea; R10.31 Right lower quadrant pain; I10 Essential (primary) hypertension; J45.909 Unspecified asthma, uncomplicated; E66.01 Morbid (severe) obesity due to excess calories
CPT/HCPCS: 36415; 74176; 80053; 81001; 83690; 84702; 85025; 99284

== ENCOUNTER 2022-06-02 22:39 | Inpatient (IN) | payer BC ==
[~2022-06-02] VITALS: Ht 154.9 cm; Wt 171.5 kg
[~2022-06-02 22:39] MED LIST changes: +DICYCLOMINE HCL20 MG PO; +ONDANSETRON HCL8 MG PO
[2022-06-02 23:20] LABS: BASOPHILS # (AUTO) 0.1 (0.0-0.1); BASOPHILS % 0.4 % (0.0-1.0); EOSINOPHILS # (AUTO) 0.2 (0.0-0.4); EOSINOPHILS % 1.3 % (0.0-6.0); HEMATOCRIT 36.9 % (34.2-44.1); HEMOGLOBIN 11.4 g/dL (12.0-16.0); LYMPHOCYTES # (AUTO) 1.4 (1.0-3.2); LYMPHOCYTES % 10.5 % (18.0-39.1); MEAN CORPUSCULAR HEMOGLOBIN 27.4 pg (28-32); MEAN CORPUSCULAR HGB CONC 30.9 g/dL (31-35); MEAN CORPUSCULAR VOLUME 88.7 fL (81-99); MONOCYTES # (AUTO) 0.9 (0.2-0.8); MONOCYTES % 6.8 % (4.4-11.3); NEUTROPHILS % 80.2 % (38.7-80.0); PLATELET COUNT 394 x10e3/uL (140-360); RED BLOOD COUNT 4.16 x10e6/uL (3.6-5.1); RED CELL DISTRIBUTION WIDTH 13.6 % (11.7-14.4)
[2022-06-02 23:25] LABS: INR 1.06; PROTHROMBIN TIME 14.8 seconds (11.9-14.5)
[2022-06-02 23:26] LABS: PARTIAL THROMBOPLASTIN TIME 29.8 seconds (23.8-35.5)
[2022-06-02] MEDS ORDERED: LEVOFLOXACIN 500MG/D5W 100ML 100 ML IV ONE (23:30)
[2022-06-02] MEDS ORDERED: SODIUM CHLORIDE 0.9% 1000ML 1,000 ML IV ONE (23:30)
[2022-06-02] MEDS ORDERED: ACETAMINOPHEN 325 MG TAB PO ONE (23:30)
[2022-06-02 23:32] LABS: ALBUMIN/GLOBULIN RATIO 0.6 (0.8-2.0); CALCIUM 9.3 mg/dL (8.4-10.2); CREATININE, SERUM 0.85 mg/dL (0.57-1.11)
[2022-06-02] MEDS ORDERED: ONDANSETRON HCL INJ 2MG/ML 2ML 2 MG/ML VIAL IV STA (23:32)
[2022-06-02] MEDS ORDERED: Vancomycin IV 1 GM in SODIUM CHLORIDE 0.9% 250ML 250 ML IV SCH (23:45)
[2022-06-02] MEDS ORDERED: FENTANYL CITRATE/PF 100MCG/2 ML INJ IV ONE (23:45)
[2022-06-03] VITALS (14 sets, daily range): BP systolic 83–120; BP diastolic 50–87
[2022-06-03] MEDS ORDERED: IOPAMIDOL 370 MG/ML 100 ML INFUS..BTL INJ ONE (01:38)
[2022-06-03 02:24] LABS: CLARITY,URINE CLEAR (CLEAR); COLOR,URINE YELLOW (YELLOW); KETONES,URINE NEGATIVE (NEGATIVE); LEUKOCYTE ESTERASE ,URINE NEGATIVE (NEGATIVE); NITRITE,URINE NEGATIVE (NEGATIVE); PROTEIN,URINE DIPSTICK NEGATIVE (NEGATIVE)
[2022-06-03 02:36] LABS: BACTERIA,URINE FEW /HPF; EPITHELIAL CELLS,URINE FEW /LPF; MUCUS,URINE MODERATE (RARE); RBC,URINE 0-5 /HPF (0-5); WBC,URINE (MAN) 0-5 /HPF (0-5)
[2022-06-03] MEDS: SODIUM CHLORIDE 0.9% 1000ML 1,000 ML IV SCH ×4 (03:23→21:15)
[2022-06-03] MEDS: METRONIDAZOLE 500MG/NS 100ML 100 ML IV SCH ×3 (05:56→18:06)
[2022-06-03] MEDS ORDERED: ALLOPURINOL100 MG PO (06:00)
[2022-06-03] MEDS: Morphine 4mg INJECTION 4 MG/ML INJ IV PRN ×3 (06:16→20:35)
[2022-06-03] MEDS ORDERED: OXYBUTYNIN CHLOR5 MG PO (06:26)
[2022-06-03] MEDS ORDERED: WELLBUTRIN XL300 MG PO (06:26)
[2022-06-03] MEDS ORDERED: HYDROXYZINE HCL10 MG PO (06:26)
[2022-06-03] MEDS: ONDANSETRON HCL INJ 2MG/ML 2ML 2 MG/ML VIAL IV PRN (11:32)
[2022-06-03] MEDS ORDERED: LIDOCAINE JELLY 2% 10ML URO-JET ONE (13:12)
[2022-06-03] MEDS ORDERED: BUPIVACAINE HC 0.75% PF 10ML VIAL INJ ONE (13:13)
[2022-06-03] MEDS ORDERED: FENTANYL CITRATE/PF 100MCG/2 ML INJ ONE ×2 (13:20→14:52)
[2022-06-03] MEDS ORDERED: MIDAZOLAM HCL 2 MG/2 ML VIAL ONE (13:20)
[2022-06-03] MEDS ORDERED: SODIUM CHLORIDE 0.9% 1000ML 1,000 ML IV SCH ×4 (14:45)
[2022-06-03] MEDS ORDERED: ATENOLOL 50 MG TAB PO SCH ×4 (14:45)
[2022-06-03] MEDS ORDERED: HYDROMORPHONE 1MG/1ML INJ ONE (15:14)
[2022-06-03] MEDS: ATENOLOL 50 MG TAB PO SCH ×2 (15:15→21:00)
[2022-06-03] MEDS ORDERED: Morphine 2mg Syringe 2 MG/ML SYR ONE (16:58)
[2022-06-03] MEDS ORDERED: ACETAMINOPHEN/CODEINE 300MG - 30MG TAB PO SCH ×4 (18:00)
[2022-06-03] MEDS: ACETAMINOPHEN/CODEINE 300MG - 30MG TAB PO SCH (18:06)
[2022-06-03] MEDS: LEVOFLOXACIN 750MG/D5W 150ML 150 ML IV SCH (21:23)
[2022-06-03] MEDS: LOPERAMIDE HCL 2 MG CAP PO SCH (21:23)
[2022-06-03] MEDS ORDERED: LOPERAMIDE HCL 2 MG CAP PO SCH ×4 (22:00)
[2022-06-03] MEDS: HYDROMORPHONE 1MG/1ML INJ IV PRN (23:10)
[2022-06-04] VITALS (22 sets, daily range): BP systolic 95–121; BP diastolic 54–76
[2022-06-04] MEDS: METRONIDAZOLE 500MG/NS 100ML 100 ML IV SCH ×5 (00:08→23:38)
[2022-06-04] MEDS: ACETAMINOPHEN/CODEINE 300MG - 30MG TAB PO SCH ×5 (00:08→23:32)
[2022-06-04] MEDS: SODIUM CHLORIDE 0.9% 1000ML 1,000 ML IV SCH ×3 (02:46→23:38)
[2022-06-04] MEDS: HYDROMORPHONE 1MG/1ML INJ IV PRN ×4 (03:34→15:59)
[2022-06-04] MEDS: LOPERAMIDE HCL 2 MG CAP PO SCH ×3 (05:54→22:00)
[2022-06-04 07:03] LABS: BASOPHILS % 0.3 % (0.0-1.0); EOSINOPHILS % 0.5 % (0.0-6.0); HEMATOCRIT 27.1 % (34.2-44.1); HEMOGLOBIN 8.1 g/dL (12.0-16.0); LYMPHOCYTES # (AUTO) 1.2 (1.0-3.2); LYMPHOCYTES % 19.2 % (18.0-39.1); MEAN CORPUSCULAR HEMOGLOBIN 27.2 pg (28-32); MEAN CORPUSCULAR HGB CONC 29.9 g/dL (31-35); MEAN CORPUSCULAR VOLUME 90.9 fL (81-99); MONOCYTES # (AUTO) 0.4 (0.2-0.8); MONOCYTES % 6.2 % (4.4-11.3); NEUTROPHILS # (AUTO) 4.7 (2.1-6.9); NEUTROPHILS % 71.9 % (38.7-80.0); PLATELET COUNT 284 x10e3/uL (140-360); RED BLOOD COUNT 2.98 x10e6/uL (3.6-5.1); RED CELL DISTRIBUTION WIDTH 13.5 % (11.7-14.4)
[2022-06-04 07:23] LABS: ALBUMIN 2.3 g/dL (3.5-5.0); ALBUMIN/GLOBULIN RATIO 0.6 (0.8-2.0); ANION GAP 14.7 mmol/L (8-16); CALCIUM 8.1 mg/dL (8.4-10.2); CREATININE, SERUM 0.59 mg/dL (0.57-1.11); POTASSIUM 3.7 mmol/L (3.5-5.1)
[2022-06-04] MEDS: BUPROPION HCL 150 MG TABCR PO SCH (08:45)
[2022-06-04] MEDS: ATENOLOL 50 MG TAB PO SCH ×2 (08:45→21:00)
[2022-06-04] MEDS: FLUTICASONE PROPIONATE NASAL SPRAY NS SCH (15:49)
[2022-06-04] MEDS: LEVOFLOXACIN 750MG/D5W 150ML 150 ML IV SCH (21:32)
[2022-06-05] VITALS (8 sets, daily range): BP systolic 101–111; BP diastolic 54–65
[2022-06-05] MEDS: HYDROMORPHONE 1MG/1ML INJ IV PRN ×4 (00:51→15:50)
[2022-06-05] MEDS: ONDANSETRON HCL INJ 2MG/ML 2ML 2 MG/ML VIAL IV PRN ×2 (02:56→14:07)
[2022-06-05] MEDS: METRONIDAZOLE 500MG/NS 100ML 100 ML IV SCH ×3 (05:37→17:14)
[2022-06-05] MEDS: ACETAMINOPHEN/CODEINE 300MG - 30MG TAB PO SCH ×3 (05:37→18:00)
[2022-06-05] MEDS: LOPERAMIDE HCL 2 MG CAP PO SCH ×3 (05:37→21:18)
[2022-06-05] MEDS: SODIUM CHLORIDE 0.9% 1000ML 1,000 ML IV SCH ×4 (05:38→15:50)
[2022-06-05 07:45] LABS: BASOPHILS # (AUTO) 0.1 (0.0-0.1); BASOPHILS % 0.9 % (0.0-1.0); EOSINOPHILS # (AUTO) 0.2 (0.0-0.4); EOSINOPHILS % 2.6 % (0.0-6.0); HEMATOCRIT 26.1 % (34.2-44.1); HEMOGLOBIN 8.2 g/dL (12.0-16.0); LYMPHOCYTES # (AUTO) 1.5 (1.0-3.2); LYMPHOCYTES % 25.4 % (18.0-39.1); MEAN CORPUSCULAR HEMOGLOBIN 27.6 pg (28-32); MEAN CORPUSCULAR HGB CONC 31.4 g/dL (31-35); MEAN CORPUSCULAR VOLUME 87.9 fL (81-99); MONOCYTES # (AUTO) 0.3 (0.2-0.8); MONOCYTES % 5.8 % (4.4-11.3); NEUTROPHILS # (AUTO) 3.6 (2.1-6.9); NEUTROPHILS % 61.5 % (38.7-80.0); PLATELET COUNT 292 x10e3/uL (140-360); RED BLOOD COUNT 2.97 x10e6/uL (3.6-5.1); RED CELL DISTRIBUTION WIDTH 13.7 % (11.7-14.4)
[2022-06-05 08:04] LABS: ANION GAP 12.3 mmol/L (8-16); CALCIUM 7.9 mg/dL (8.4-10.2); CREATININE, SERUM 0.58 mg/dL (0.57-1.11); POTASSIUM 3.3 mmol/L (3.5-5.1)
[2022-06-05] MEDS: ATENOLOL 50 MG TAB PO SCH ×2 (08:50→21:23)
[2022-06-05] MEDS: BUPROPION HCL 150 MG TABCR PO SCH (08:50)
[2022-06-05] MEDS: FLUTICASONE PROPIONATE NASAL SPRAY NS SCH (08:51)
[2022-06-05 11:19] LABS: ALBUMIN 2.4 g/dL (3.5-5.0); BILIRUBIN,DIRECT 0.2 mg/dL (0.0-0.5)
[2022-06-05] MEDS ORDERED: KCL 20 MEQ PACKET/ ORAL SOLN PO ONE (15:10)
[2022-06-05] MEDS: CEFTRIAXONE 2 GM in SODIUM CHLORIDE 0.9% 100 ML IV SCH (15:50)
[2022-06-05] MEDS ORDERED: SODIUM CHLORIDE 0.9% 100 ML ONE (15:59)
[2022-06-06] VITALS (9 sets, daily range): BP systolic 96–118; BP diastolic 51–75
[2022-06-06] MEDS: SODIUM CHLORIDE 0.9% 1000ML 1,000 ML IV SCH ×4 (04:09→18:05)
[2022-06-06] MEDS: HYDROMORPHONE 1MG/1ML INJ IV PRN ×3 (04:15→23:33)
[2022-06-06 06:13] LABS: ALBUMIN 2.5 g/dL (3.5-5.0); ALBUMIN/GLOBULIN RATIO 0.7 (0.8-2.0); ANION GAP 17.8 mmol/L (8-16); CALCIUM 8.4 mg/dL (8.4-10.2); CREATININE, SERUM 0.63 mg/dL (0.57-1.11); POTASSIUM 3.8 mmol/L (3.5-5.1)
[2022-06-06] MEDS: LOPERAMIDE HCL 2 MG CAP PO SCH ×3 (06:15→22:16)
[2022-06-06] MEDS: ACETAMINOPHEN/CODEINE 300MG - 30MG TAB PO SCH ×4 (06:15→18:05)
[2022-06-06] MEDS: METRONIDAZOLE 500MG/NS 100ML 100 ML IV SCH ×4 (06:15→18:05)
[2022-06-06 08:17] LABS: BASOPHILS % 0.5 % (0.0-1.0); EOSINOPHILS # (AUTO) 0.1 (0.0-0.4); EOSINOPHILS % 2.1 % (0.0-6.0); HEMATOCRIT 24.2 % (34.2-44.1); HEMOGLOBIN 7.2 g/dL (12.0-16.0); LYMPHOCYTES # (AUTO) 1.4 (1.0-3.2); LYMPHOCYTES % 24.9 % (18.0-39.1); MEAN CORPUSCULAR HEMOGLOBIN 27.6 pg (28-32); MEAN CORPUSCULAR HGB CONC 29.8 g/dL (31-35); MEAN CORPUSCULAR VOLUME 92.7 fL (81-99); MONOCYTES # (AUTO) 0.4 (0.2-0.8); MONOCYTES % 6.1 % (4.4-11.3); NEUTROPHILS # (AUTO) 3.5 (2.1-6.9); NEUTROPHILS % 61.1 % (38.7-80.0); PLATELET COUNT 289 x10e3/uL (140-360); RED BLOOD COUNT 2.61 x10e6/uL (3.6-5.1)
[2022-06-06] MEDS: BUPROPION HCL 150 MG TABCR PO SCH (08:23)
[2022-06-06] MEDS: CEFTRIAXONE 2 GM in SODIUM CHLORIDE 0.9% 100 ML IV SCH (08:23)
[2022-06-06] MEDS: ATENOLOL 50 MG TAB PO SCH ×2 (08:24→21:00)
[2022-06-06] MEDS: FLUTICASONE PROPIONATE NASAL SPRAY NS SCH (09:00)
[2022-06-06] MEDS: ONDANSETRON HCL INJ 2MG/ML 2ML 2 MG/ML VIAL IV PRN ×2 (11:14→23:33)
[2022-06-07] VITALS (7 sets, daily range): BP systolic 104–119; BP diastolic 49–70
[2022-06-07] MEDS: METRONIDAZOLE 500MG/NS 100ML 100 ML IV SCH ×4 (00:55→18:05)
[2022-06-07] MEDS: ACETAMINOPHEN/CODEINE 300MG - 30MG TAB PO SCH ×2 (00:55→06:42)
[2022-06-07] MEDS: HYDROMORPHONE 1MG/1ML INJ IV PRN ×5 (05:45→22:24)
[2022-06-07] MEDS: ONDANSETRON HCL INJ 2MG/ML 2ML 2 MG/ML VIAL IV PRN ×2 (05:45→12:58)
[2022-06-07] MEDS: SODIUM CHLORIDE 0.9% 1000ML 1,000 ML IV SCH ×3 (05:46→18:11)
[2022-06-07] MEDS: LOPERAMIDE HCL 2 MG CAP PO SCH (05:49)
[2022-06-07 05:56] LABS: BASOPHILS % 0.6 % (0.0-1.0); EOSINOPHILS # (AUTO) 0.1 (0.0-0.4); EOSINOPHILS % 1.9 % (0.0-6.0); HEMATOCRIT 27.9 % (34.2-44.1); LYMPHOCYTES # (AUTO) 1.7 (1.0-3.2); LYMPHOCYTES % 25.1 % (18.0-39.1); MEAN CORPUSCULAR HGB CONC 28.7 g/dL (31-35); MEAN CORPUSCULAR VOLUME 94.3 fL (81-99); MONOCYTES # (AUTO) 0.4 (0.2-0.8); MONOCYTES % 5.8 % (4.4-11.3); NEUTROPHILS # (AUTO) 4.2 (2.1-6.9); NEUTROPHILS % 60.5 % (38.7-80.0); PLATELET COUNT 284 x10e3/uL (140-360); RED BLOOD COUNT 2.96 x10e6/uL (3.6-5.1); RED CELL DISTRIBUTION WIDTH 14.1 % (11.7-14.4)
[2022-06-07 06:19] LABS: ALBUMIN 2.4 g/dL (3.5-5.0); ALBUMIN/GLOBULIN RATIO 0.9 (0.8-2.0); ANION GAP 13.4 mmol/L (8-16); CALCIUM 7.7 mg/dL (8.4-10.2); CREATININE, SERUM 0.57 mg/dL (0.57-1.11); POTASSIUM 3.4 mmol/L (3.5-5.1)
[2022-06-07] MEDS: CEFTRIAXONE 2 GM in SODIUM CHLORIDE 0.9% 100 ML IV SCH (09:09)
[2022-06-07] MEDS: ATENOLOL 50 MG TAB PO SCH ×2 (09:13→21:22)
[2022-06-07] MEDS: BUPROPION HCL 150 MG TABCR PO SCH (09:13)
[2022-06-07] MEDS: FLUTICASONE PROPIONATE NASAL SPRAY NS SCH (10:57)
[2022-06-07] MEDS ORDERED: POTASSIUM CHLORIDE 10MEQ EA PO ONE (17:45)
[2022-06-08] VITALS: BP_SYST 102; BP_SYST 125; BP_DIAS 62; BP_DIAS 64
[2022-06-08] MEDS: METRONIDAZOLE 500MG/NS 100ML 100 ML IV SCH ×3 (00:38→13:01)
[2022-06-08] MEDS: SODIUM CHLORIDE 0.9% 1000ML 1,000 ML IV SCH ×3 (00:38→14:46)
[2022-06-08] MEDS: HYDROMORPHONE 1MG/1ML INJ IV PRN ×4 (03:04→14:01)
[2022-06-08 04:38] VITALS: BP 101/54
[2022-06-08 05:48] LABS: BASOPHILS % 0.5 % (0.0-1.0); EOSINOPHILS # (AUTO) 0.2 (0.0-0.4); EOSINOPHILS % 2.4 % (0.0-6.0); HEMATOCRIT 28.4 % (34.2-44.1); HEMOGLOBIN 8.5 g/dL (12.0-16.0); LYMPHOCYTES # (AUTO) 1.8 (1.0-3.2); LYMPHOCYTES % 21.7 % (18.0-39.1); MEAN CORPUSCULAR HEMOGLOBIN 27.7 pg (28-32); MEAN CORPUSCULAR HGB CONC 29.9 g/dL (31-35); MEAN CORPUSCULAR VOLUME 92.5 fL (81-99); MONOCYTES # (AUTO) 0.4 (0.2-0.8); MONOCYTES % 5.4 % (4.4-11.3); NEUTROPHILS # (AUTO) 5.1 (2.1-6.9); NEUTROPHILS % 62.9 % (38.7-80.0); PLATELET COUNT 320 x10e3/uL (140-360); RED BLOOD COUNT 3.07 x10e6/uL (3.6-5.1); RED CELL DISTRIBUTION WIDTH 14.1 % (11.7-14.4)
[2022-06-08 06:21] LABS: ANION GAP 10.5 mmol/L (8-16); CREATININE, SERUM 0.55 mg/dL (0.57-1.11); POTASSIUM 3.5 mmol/L (3.5-5.1)
[2022-06-08 08:00] VITALS: BP 101/54
[2022-06-08 08:04] VITALS: BP 93/55
[2022-06-08] MEDS: ONDANSETRON HCL INJ 2MG/ML 2ML 2 MG/ML VIAL IV PRN ×2 (08:45→14:07)
[2022-06-08] MEDS: ATENOLOL 50 MG TAB PO SCH (09:00)
[2022-06-08] MEDS: CEFTRIAXONE 2 GM in SODIUM CHLORIDE 0.9% 100 ML IV SCH (09:12)
[2022-06-08] MEDS: FLUTICASONE PROPIONATE NASAL SPRAY NS SCH (09:12)
[2022-06-08] MEDS: BUPROPION HCL 150 MG TABCR PO SCH (09:14)
[2022-06-08 12:00] VITALS: BP 103/54
[2022-06-08 15:53] VITALS: BP 97/58
== END 2022-06-08 16:58 | disposition home or self-care (01) | DRG 357 ==
LOC: ER 23:00 → ERHOLD 06-03 01:27 → MED/SURG2 06-03 03:18 → ICU 06-03 16:55 → MED/SURG2 06-04 18:54
PROC: 0JB90ZZ Excision of Buttock Subcutaneous Tissue and Fascia, Open Approach (ICD-10-PCS; principal; 2022-06-03 13:20)
PROC: 02HV33Z Insertion of Infusion Device into Superior Vena Cava, Percutaneous Approach (ICD-10-PCS; 2022-06-05)
DX: K61.31 Horseshoe abscess (principal); I96 Gangrene, not elsewhere classified; Z68.45 Body mass index [BMI] 70 or greater, adult; Z20.822 Contact with and (suspected) exposure to COVID-19; E87.8 Other disorders of electrolyte and fluid balance, not elsewhere classified; E66.01 Morbid (severe) obesity due to excess calories; J45.909 Unspecified asthma, uncomplicated; Z88.1 Allergy status to other antibiotic agents; Z88.8 Allergy status to other drugs, medicaments and biological substances; B96.20 Unspecified Escherichia coli [E. coli] as the cause of diseases classified elsewhere; G43.909 Migraine, unspecified, not intractable, without status migrainosus; D64.9 Anemia, unspecified
CPT/HCPCS: 36415; 36569; 71045; 74177; 80048; 80053; 80076; 81001; 83605; 85025; 85610; 85730; 86850; 86900; 87040; 87071; 87075; 87186; 87205; 94799; 96360; 96361; 99251; 99284; J0696; J1170; J1956; J2250; J2270; J2405; J3010; J3370; J7030; J7050; Q9967

== ENCOUNTER 2022-06-12 19:14 | Inpatient (IN) | payer BC ==
[~2022-06-12] VITALS: Ht 154.9 cm; Wt 171.5 kg
[~2022-06-12 19:14] MED LIST changes: +ALLOPURINOL100 MG PO; +HYDROXYZINE HCL10 MG PO; +OXYBUTYNIN CHLOR5 MG PO; +WELLBUTRIN XL300 MG PO
[2022-06-12 21:55] LABS: BASOPHILS % 0.5 % (0.0-1.0); EOSINOPHILS # (AUTO) 0.2 (0.0-0.4); EOSINOPHILS % 3.2 % (0.0-6.0); HEMATOCRIT 30.5 % (34.2-44.1); HEMOGLOBIN 9.1 g/dL (12.0-16.0); LYMPHOCYTES # (AUTO) 2.1 (1.0-3.2); LYMPHOCYTES % 28.8 % (18.0-39.1); MEAN CORPUSCULAR HEMOGLOBIN 27.3 pg (28-32); MEAN CORPUSCULAR HGB CONC 29.8 g/dL (31-35); MEAN CORPUSCULAR VOLUME 91.6 fL (81-99); MONOCYTES # (AUTO) 0.4 (0.2-0.8); MONOCYTES % 5.6 % (4.4-11.3); NEUTROPHILS # (AUTO) 4.5 (2.1-6.9); NEUTROPHILS % 61.1 % (38.7-80.0); PLATELET COUNT 252 x10e3/uL (140-360); RED BLOOD COUNT 3.33 x10e6/uL (3.6-5.1); RED CELL DISTRIBUTION WIDTH 15.6 % (11.7-14.4)
[2022-06-12 22:02] LABS: INR 0.95; PROTHROMBIN TIME 13.6 seconds (11.9-14.5)
[2022-06-12 22:03] LABS: PARTIAL THROMBOPLASTIN TIME 30.5 seconds (23.8-35.5)
[2022-06-12 22:13] LABS: ALBUMIN 3.1 g/dL (3.5-5.0); ALBUMIN/GLOBULIN RATIO 1.2 (0.8-2.0); ANION GAP 18.1 mmol/L (8-16); CALCIUM 8.8 mg/dL (8.4-10.2); CREATININE, SERUM 0.67 mg/dL (0.57-1.11); POTASSIUM 4.1 mmol/L (3.5-5.1)
[2022-06-12] MEDS ORDERED: HEPARIN 25,000 UNIT DRIP IV ONE (22:19)
[2022-06-12] MEDS: SODIUM CHLORIDE 0.9% 1000ML 1,000 ML IV SCH (22:20)
[2022-06-12] MEDS: HEPARIN 25,000 UNIT 1,500 UNIT in DEXTROSE 5% 250ML 250 ML IV SCH (22:29)
[2022-06-12] MEDS: ONDANSETRON HCL INJ 2MG/ML 2ML 2 MG/ML VIAL IV PRN (22:37)
[2022-06-12] MEDS: Morphine 4mg INJECTION 4 MG/ML INJ IV PRN (22:37)
[2022-06-13] VITALS (8 sets, daily range): BP systolic 107–142; BP diastolic 66–85
[2022-06-13] MEDS: ONDANSETRON HCL INJ 2MG/ML 2ML 2 MG/ML VIAL IV PRN ×3 (03:54→21:21)
[2022-06-13] MEDS: Morphine 4mg INJECTION 4 MG/ML INJ IV PRN (03:54)
[2022-06-13] MEDS ORDERED: ATENOLOL25 MG PO (04:23)
[2022-06-13] MEDS ORDERED: HYDROXYZINE HCL25 MG PO (04:23)
[2022-06-13] MEDS: SODIUM CHLORIDE 0.9% 1000ML 1,000 ML IV SCH ×3 (05:28→21:27)
[2022-06-13 05:38] LABS: BASOPHILS % 0.6 % (0.0-1.0); EOSINOPHILS # (AUTO) 0.2 (0.0-0.4); EOSINOPHILS % 3.3 % (0.0-6.0); HEMATOCRIT 28.9 % (34.2-44.1); HEMOGLOBIN 8.7 g/dL (12.0-16.0); LYMPHOCYTES # (AUTO) 2.2 (1.0-3.2); LYMPHOCYTES % 33.2 % (18.0-39.1); MEAN CORPUSCULAR HEMOGLOBIN 27.3 pg (28-32); MEAN CORPUSCULAR HGB CONC 30.1 g/dL (31-35); MEAN CORPUSCULAR VOLUME 90.6 fL (81-99); MONOCYTES # (AUTO) 0.4 (0.2-0.8); MONOCYTES % 5.8 % (4.4-11.3); NEUTROPHILS # (AUTO) 3.7 (2.1-6.9); PLATELET COUNT 226 x10e3/uL (140-360); RED BLOOD COUNT 3.19 x10e6/uL (3.6-5.1); RED CELL DISTRIBUTION WIDTH 15.5 % (11.7-14.4)
[2022-06-13 06:03] LABS: ALBUMIN 2.9 g/dL (3.5-5.0); ANION GAP 18.7 mmol/L (8-16); CALCIUM 8.4 mg/dL (8.4-10.2); CREATININE, SERUM 0.67 mg/dL (0.57-1.11); POTASSIUM 3.7 mmol/L (3.5-5.1)
[2022-06-13] MEDS ORDERED: HYDROCODONE/APAP 10MG-325MG TAB PO PRN (09:45)
[2022-06-13] MEDS: CEFTRIAXONE 2 GM in SODIUM CHLORIDE 0.9% 100 ML IV SCH (13:12)
[2022-06-13] MEDS: HYDROMORPHONE 2MG/ML 2 MG/ML ML IV PRN ×2 (17:16→21:22)
[2022-06-13] MEDS: HEPARIN 25,000 UNIT 1,500 UNIT in DEXTROSE 5% 250ML 250 ML IV SCH (21:28)
[2022-06-14] VITALS (8 sets, daily range): BP systolic 112–148; BP diastolic 61–85
[2022-06-14 01:09] LABS: INR 0.94; PROTHROMBIN TIME 13.4 seconds (11.9-14.5)
[2022-06-14] MEDS: ONDANSETRON HCL INJ 2MG/ML 2ML 2 MG/ML VIAL IV PRN ×5 (01:56→20:12)
[2022-06-14] MEDS: HYDROMORPHONE 2MG/ML 2 MG/ML ML IV PRN ×5 (01:56→20:12)
[2022-06-14] MEDS: SODIUM CHLORIDE 0.9% 1000ML 1,000 ML IV SCH ×2 (05:20→22:15)
[2022-06-14] MEDS: CEFTRIAXONE 2 GM in SODIUM CHLORIDE 0.9% 100 ML IV SCH (08:37)
[2022-06-14] MEDS ORDERED: ALBUTEROL SULFATE HFA 8GM INHALATION AEROSOL INH PRN (13:00)
[2022-06-14] MEDS ORDERED: DICYCLOMINE HCL 20 MG TAB PO PRN (13:00)
[2022-06-14] MEDS ORDERED: SUMATRIPTAN SUCCINATE 6 MG/0.5 ML VIAL SC ONE ×2 (13:00→15:00)
[2022-06-14] MEDS ORDERED: HYDROXYZINE HCL 25 MG TAB PO SCH (13:00)
[2022-06-14] MEDS ORDERED: ALBUTEROL SULF 0.083% NEB SOLN 3 ML NEB NEB PRN (13:15)
[2022-06-14] MEDS: ALLOPURINOL 100 MG TAB PO SCH (14:11)
[2022-06-14] MEDS: OXYBUTYNIN CHLORIDE 5 MG TAB PO SCH (14:11)
[2022-06-14] MEDS: BUPROPION HCL 150 MG TABCR PO SCH (14:12)
[2022-06-14] MEDS: ATENOLOL 50 MG TAB PO SCH ×2 (14:12→22:15)
[2022-06-14] MEDS: HYDROXYZINE HCL 10 MG TAB PO SCH (19:21)
[2022-06-14] MEDS: HEPARIN 25,000 UNIT 1,500 UNIT in DEXTROSE 5% 250ML 250 ML IV SCH (19:21)
[2022-06-15] MEDS: ONDANSETRON HCL INJ 2MG/ML 2ML 2 MG/ML VIAL IV PRN ×4 (00:58→13:52)
[2022-06-15] MEDS: HYDROMORPHONE 2MG/ML 2 MG/ML ML IV PRN ×4 (00:58→13:52)
[2022-06-15] MEDS: HYDROXYZINE HCL 10 MG TAB PO SCH ×2 (01:30→13:52)
[2022-06-15] MEDS: SODIUM CHLORIDE 0.9% 1000ML 1,000 ML IV SCH (05:41)
[2022-06-15] MEDS: HEPARIN 25,000 UNIT 1,500 UNIT in DEXTROSE 5% 250ML 250 ML IV SCH (08:21)
[2022-06-15 08:22] VITALS: BP 117/59
[2022-06-15 08:23] VITALS: BP 117/59
[2022-06-15] MEDS: BUPROPION HCL 150 MG TABCR PO SCH (08:42)
[2022-06-15] MEDS: ATENOLOL 50 MG TAB PO SCH (08:43)
[2022-06-15] MEDS: OXYBUTYNIN CHLORIDE 5 MG TAB PO SCH (08:43)
[2022-06-15] MEDS: ALLOPURINOL 100 MG TAB PO SCH (08:43)
[2022-06-15] MEDS: CEFTRIAXONE 2 GM in SODIUM CHLORIDE 0.9% 100 ML IV SCH (08:44)
[2022-06-15 11:46] VITALS: BP 112/62
[2022-06-15 15:25] VITALS: BP 100/61
[2022-06-15] MEDS ORDERED: ELIQUIS5 MG PO ×2 (16:05→16:06)
[2022-06-15] MEDS ORDERED: CEFUROXIME500 MG PO (16:10)
== END 2022-06-15 16:43 | disposition home or self-care (01) | DRG 300 ==
LOC: ER 19:25 → ERHOLD 21:07 → MED/SURG2 06-13 02:44
DX: I82.621 Acute embolism and thrombosis of deep veins of right upper extremity (principal); Z68.45 Body mass index [BMI] 70 or greater, adult; E66.01 Morbid (severe) obesity due to excess calories; Z88.1 Allergy status to other antibiotic agents; Z88.0 Allergy status to penicillin; Z88.2 Allergy status to sulfonamides; Z91.018 Allergy to other foods; I10 Essential (primary) hypertension; Z20.822 Contact with and (suspected) exposure to COVID-19; Z98.890 Other specified postprocedural states
CPT/HCPCS: 36415; 80053; 85025; 85610; 85730; 93306; 93971; 94799; 96361; 99251; 99284; J0696; J2270; J2405; J3030; J3410; J7030; J7050

== ENCOUNTER 2022-06-17 14:37 | Emergency (ER) | payer BC ==
[~2022-06-17] VITALS: Ht 154.9 cm; Wt 171.5 kg
[~2022-06-17 14:37] MED LIST changes: +ATENOLOL25 MG PO; +CEFUROXIME500 MG PO; +ELIQUIS5 MG PO; +HYDROXYZINE HCL25 MG PO
[2022-06-17 16:40] VITALS: BP 111/63
== END 2022-06-17 16:33 | disposition home or self-care (01) ==
LOC: ER 14:43
DX: M79.621 Pain in right upper arm (principal); I82.621 Acute embolism and thrombosis of deep veins of right upper extremity; I10 Essential (primary) hypertension; J45.909 Unspecified asthma, uncomplicated; E66.01 Morbid (severe) obesity due to excess calories
CPT/HCPCS: 93971; 99283

== ENCOUNTER 2023-03-17 21:40 | Emergency (ER) | payer BC ==
[~2023-03-17] VITALS: Ht 154.9 cm; Wt 171.5 kg
[2023-03-17] MEDS ORDERED: ONDANSETRON HCL INJ 2MG/ML 2ML 2 MG/ML VIAL IV STA (21:44)
[2023-03-17] MEDS ORDERED: KETOROLAC TROMETHAMINE 30 MG/ML VIAL IV STA (21:44)
[2023-03-17 22:00] LABS: BASOPHILS % 0.4 % (0.0-1.0); EOSINOPHILS # (AUTO) 0.1 (0.0-0.4); EOSINOPHILS % 0.8 % (0.0-6.0); HEMATOCRIT 38.6 % (34.2-44.1); HEMOGLOBIN 12.3 g/dL (12.0-16.0); LYMPHOCYTES # (AUTO) 2.5 (1.0-3.2); LYMPHOCYTES % 24.1 % (18.0-39.1); MEAN CORPUSCULAR HEMOGLOBIN 27.6 pg (28-32); MEAN CORPUSCULAR HGB CONC 31.9 g/dL (31-35); MEAN CORPUSCULAR VOLUME 86.5 fL (81-99); MONOCYTES # (AUTO) 0.5 (0.2-0.8); MONOCYTES % 4.9 % (4.4-11.3); NEUTROPHILS # (AUTO) 7.3 (2.1-6.9); NEUTROPHILS % 69.6 % (38.7-80.0); PLATELET COUNT 278 x10e3/uL (140-360); RED BLOOD COUNT 4.46 x10e6/uL (3.6-5.1)
[2023-03-17 22:07] LABS: CLARITY,URINE CLEAR (CLEAR); COLOR,URINE YELLOW (YELLOW); KETONES,URINE 1+ (NEGATIVE); LEUKOCYTE ESTERASE ,URINE NEGATIVE (NEGATIVE); NITRITE,URINE NEGATIVE (NEGATIVE); PROTEIN,URINE DIPSTICK NEGATIVE (NEGATIVE); URINE UROBILINOGEN 0.2 mg/dL (0.2 - 1)
[2023-03-17 22:14] LABS: ANION GAP 13.8 mmol/L (8-16); CALCIUM 9.6 mg/dL (8.4-10.2); CREATININE, SERUM 0.82 mg/dL (0.57-1.11); POTASSIUM 3.8 mmol/L (3.5-5.1)
[2023-03-17 22:14] LABS: BACTERIA,URINE FEW /HPF; EPITHELIAL CELLS,URINE FEW /LPF; RBC,URINE 0-5 /HPF (0-5); WBC,URINE (MAN) 0-5 /HPF (0-5)
[2023-03-18] MEDS ORDERED: ONDANSETRON ODT4 MG PO (00:07)
[2023-03-18 00:18] VITALS: BP 104/70; O2SAT 100
== END 2023-03-18 00:19 | disposition home or self-care (01) ==
LOC: ER 21:50
DX: R10.32 Left lower quadrant pain (principal); N20.0 Calculus of kidney; R11.0 Nausea; R16.1 Splenomegaly, not elsewhere classified; I10 Essential (primary) hypertension; J45.909 Unspecified asthma, uncomplicated; E66.01 Morbid (severe) obesity due to excess calories; Z86.718 Personal history of other venous thrombosis and embolism
CPT/HCPCS: 36415; 74176; 80048; 81001; 81025; 85025; 99283; J1885; J2405

== ENCOUNTER 2024-07-26 11:29 | Emergency (ER) | payer BC ==
[~2024-07-26] VITALS: Ht 154.9 cm; Wt 77.6 kg
[~2024-07-26 11:29] MED LIST changes: +FLOMAX0.4 MG PO; +HYDROCODON-ACE1 EAC9; +MACROBID 100 M100 MG PO; +ONDANSETRON ODT4 MG PO
[2024-07-26 11:51] VITALS: TEMP 98.2
[2024-07-26] MEDS: DIAZEPAM 5 MG TAB PO ONE (12:20)
[2024-07-26] MEDS: ONDANSETRON HCL 4 MG ORAL DISINTEGRATING TAB PO ONE (12:20)
[2024-07-26] MEDS: KETOROLAC TROMETHAMINE 30 MG/ML VIAL IM ONE (12:21)
[2024-07-26] MEDS ORDERED: METHOCARBAMOL750 MG PO (14:46)
[2024-07-26 15:21] VITALS: PULSE 87; RESP 16; O2SAT 100
== END 2024-07-26 15:19 | disposition home or self-care (01) ==
LOC: ER 11:43
DX: S16.1XXA Strain of muscle, fascia and tendon at neck level, initial encounter (principal); M54.6 Pain in thoracic spine; V43.52XA Car driver injured in collision with other type car in traffic accident, initial encounter; Y92.488 Other paved roadways as the place of occurrence of the external cause; I10 Essential (primary) hypertension; J45.909 Unspecified asthma, uncomplicated; E66.01 Morbid (severe) obesity due to excess calories; Z87.442 Personal history of urinary calculi; Z86.718 Personal history of other venous thrombosis and embolism
CPT/HCPCS: 70450; 72125; 72131; 99283; J1885; Q0162

== ENCOUNTER → 2024-10-05 | Outpatient (REF) | payer BC ==
[~2024-10-05] MED LIST changes: +LIDOCAINE HCL 1% 30ML-PF VIAL ONE; +METHOCARBAMOL750 MG PO
== END ==
LOC: US 09:01
PROVIDERS: ATTEND Family Medicine
DX: E04.1 Nontoxic single thyroid nodule (principal)
CPT/HCPCS: 10005; 88172; 88173; J2003; 88305

== ENCOUNTER 2025-01-25 13:32 | Emergency (ER) | payer BC ==
[~2025-01-25] VITALS: Ht 154.9 cm; Wt 77.6 kg
[~2025-01-25 13:32] MED LIST changes: -LIDOCAINE HCL 1% 30ML-PF VIAL ONE
[2025-01-25 13:41] VITALS: PULSE 102; RESP 20; TEMP 97.5
[2025-01-25 13:55] LABS: BASOPHILS # (AUTO) 0.1 (0.0-0.1); EOSINOPHILS # (AUTO) 0.2 (0.0-0.4); EOSINOPHILS % 2.8 % (0.0-6.0); HEMATOCRIT 38.1 % (34.2-44.1); HEMOGLOBIN 12.5 g/dL (12.0-16.0); LYMPHOCYTES # (AUTO) 2.2 (1.0-3.2); LYMPHOCYTES % 28.1 % (18.0-39.1); MEAN CORPUSCULAR HEMOGLOBIN 31.1 pg (28-32); MEAN CORPUSCULAR HGB CONC 32.8 g/dL (31-35); MEAN CORPUSCULAR VOLUME 94.8 fL (81-99); MONOCYTES # (AUTO) 0.5 (0.2-0.8); MONOCYTES % 6.7 % (4.4-11.3); NEUTROPHILS # (AUTO) 4.7 (2.1-6.9); NEUTROPHILS % 60.8 % (38.7-80.0); PLATELET COUNT 308 x10e3/uL (140-360); RED BLOOD COUNT 4.02 x10e6/uL (3.6-5.1); RED CELL DISTRIBUTION WIDTH 12.1 % (11.7-14.4); WHITE BLOOD COUNT 7.73 x10e3/uL (4.8-10.8)
[2025-01-25 14:16] LABS: ALBUMIN 3.9 g/dL (3.5-5.0); ALBUMIN/GLOBULIN RATIO 1.3 (0.8-2.0); ANION GAP 16.5 mmol/L (8-16); BILIRUBIN,TOTAL 0.6 mg/dL (0.2-1.2); CALCIUM 9.7 mg/dL (8.4-10.2); CREATININE, SERUM 0.65 mg/dL (0.57-1.11); POTASSIUM 4.5 mmol/L (3.5-5.1); TOTAL PROTEIN 6.9 g/dL (6.5-8.1)
[2025-01-25] MEDS: FENTANYL CITRATE/PF 100MCG/2 ML INJ IV PRN (14:44)
[2025-01-25] MEDS ORDERED: IOPAMIDOL 370 MG/ML 100 ML INFUS..BTL INJ ONE (15:07)
[2025-01-25 16:32] VITALS: BP 117/76; PULSE 82; RESP 17; TEMP 97.8; O2SAT 100
== END 2025-01-25 16:34 | disposition home or self-care (01) ==
LOC: ER 13:48
DX: G89.18 Other acute postprocedural pain (principal); R10.30 Lower abdominal pain, unspecified; I10 Essential (primary) hypertension; J45.909 Unspecified asthma, uncomplicated; K21.9 Gastro-esophageal reflux disease without esophagitis; E66.01 Morbid (severe) obesity due to excess calories; Z98.84 Bariatric surgery status; Z86.718 Personal history of other venous thrombosis and embolism; Z87.442 Personal history of urinary calculi
CPT/HCPCS: 36415; 74177; 80053; 84702; 85025; 99283; J3010; Q9967

== ENCOUNTER 2025-05-06 07:47 | Emergency (ER) | payer BC ==
[~2025-05-06] VITALS: Ht 154.9 cm; Wt 77.1 kg
[2025-05-06 07:50] VITALS: TEMP 98.2
[2025-05-06 08:23] LABS: BASOPHILS % 0.5 % (0.0-1.0); EOSINOPHILS % 2.3 % (0.0-6.0); LYMPHOCYTES % 21.6 % (18.0-39.1); MONOCYTES % 6.6 % (4.4-11.3); NEUTROPHILS % 68.7 % (38.7-80.0); RED CELL DISTRIBUTION WIDTH 11.9 % (11.7-14.4)
[2025-05-06 08:50] LABS: INR 0.87
[2025-05-06 08:51] LABS: LEUKOCYTE ESTERASE ,URINE NEGATIVE (NEGATIVE); PROTEIN,URINE DIPSTICK NEGATIVE (NEGATIVE); URINE UROBILINOGEN 2.0 mg/dL (0.2 - 1)
[2025-05-06] MEDS: Morphine 4mg INJECTION 4 MG/ML INJ IV STA (08:53)
[2025-05-06] MEDS: ONDANSETRON HCL INJ 2MG/ML 2ML 2 MG/ML VIAL IV STA (08:54)
[2025-05-06 08:58] LABS: EST GLOMERULAR FILTRATION RATE 96.0 ML/MIN (>=60)
[2025-05-06 09:00] VITALS: RESP 18
[2025-05-06 09:01] LABS: EPITHELIAL CELLS,URINE MANY /LPF; WBC,URINE (MAN) 0-5 /HPF (0-5)
[2025-05-06] MEDS ORDERED: IOPAMIDOL 370 MG/ML 100 ML INFUS..BTL INJ ONE (09:14)
[2025-05-06 09:30] VITALS: PULSE 75; O2SAT 100
[2025-05-06] MEDS: HYDROMORPHONE 1MG/1ML INJ IV STA (10:31)
[2025-05-06] MEDS ORDERED: LEVSIN-SL0.125 MG SL (10:46)
== END 2025-05-06 11:20 | disposition home or self-care (01) ==
LOC: ER 08:04
DX: R11.2 Nausea with vomiting, unspecified (principal); R10.30 Lower abdominal pain, unspecified; I10 Essential (primary) hypertension; J45.909 Unspecified asthma, uncomplicated; K21.9 Gastro-esophageal reflux disease without esophagitis; Z86.718 Personal history of other venous thrombosis and embolism; Z98.84 Bariatric surgery status
CPT/HCPCS: 36415; 74177; 80053; 81001; 83735; 85025; 85610; 85730; 87086; 99284; J1171; J2270; J2405; J2470; Q9967

== ENCOUNTER 2025-05-07 18:51 | Inpatient (IN) | payer BC ==
[~2025-05-07] VITALS: Ht 154.9 cm; Wt 77.6 kg
[~2025-05-07 18:51] MED LIST changes: +LEVSIN-SL0.125 MG SL
[2025-05-07 19:45] VITALS: TEMP 98.6
[2025-05-07] MEDS ORDERED: IOPAMIDOL 370 MG/ML 100 ML INFUS..BTL INJ ONE (20:05)
[2025-05-07 20:08] LABS: BASOPHILS % 0.7 % (0.0-1.0); EOSINOPHILS % 4.6 % (0.0-6.0); LYMPHOCYTES % 32.2 % (18.0-39.1); MONOCYTES % 6.7 % (4.4-11.3); NEUTROPHILS % 55.5 % (38.7-80.0); RED CELL DISTRIBUTION WIDTH 12.1 % (11.7-14.4)
[2025-05-07 20:18] LABS: LEUKOCYTE ESTERASE ,URINE NEGATIVE (NEGATIVE); PREGNANCY TEST, URINE NEGATIVE (NEGATIVE); PROTEIN,URINE DIPSTICK NEGATIVE (NEGATIVE); URINE UROBILINOGEN 0.2 mg/dL (0.2 - 1)
[2025-05-07] MEDS: SODIUM CHLORIDE 0.9% 1000ML 1,000 ML IV STA (20:23)
[2025-05-07] MEDS: FAMOTIDINE 20 MG/2 ML VIAL IV STA (20:23)
[2025-05-07] MEDS: ONDANSETRON HCL INJ 2MG/ML 2ML 2 MG/ML VIAL IV STA (20:23)
[2025-05-07 20:29] LABS: EPITHELIAL CELLS,URINE MODERATE /LPF; EST GLOMERULAR FILTRATION RATE 105.0 ML/MIN (>=60); WBC,URINE (MAN) 0-5 /HPF (0-5)
[2025-05-07] MEDS: KETOROLAC TROMETHAMINE 30 MG/ML VIAL IV STA (21:17)
[2025-05-07 22:00] VITALS: PULSE 82; RESP 20
[2025-05-08] VITALS (7 sets, daily range): BP systolic 104–132; BP diastolic 62–73; PULSE 65–88; RESP 16–20; TEMP 97.3–98.4; O2SAT 97–100
[2025-05-08] MEDS: SODIUM CHLORIDE 0.9% 1000ML 1,000 ML IV SCH ×2 (00:20→08:54)
[2025-05-08] MEDS: ONDANSETRON HCL INJ 2MG/ML 2ML 2 MG/ML VIAL IV PRN (00:21)
[2025-05-08] MEDS: Morphine 4mg INJECTION 4 MG/ML INJ IV PRN (00:22)
[2025-05-08] MEDS ORDERED: BUPROPION XL150 MG PO (00:39)
[2025-05-08] MEDS ORDERED: ACARBOSE50 MG PO (00:39)
[2025-05-08] MEDS ORDERED: OZEMPIC2 MG/0.75 SQ (00:39)
[2025-05-08] MEDS ORDERED: DICYCLOMINE HCL20 MG PO (00:39)
[2025-05-08] MEDS ORDERED: BARIATRIC MV-I1 EACH PO (00:39)
[2025-05-08] MEDS ORDERED: CALCIUM CITRAT200 MG PO (00:39)
[2025-05-08] MEDS ORDERED: FLORINEF ACETA0.1 MG PO (00:39)
[2025-05-08] MEDS ORDERED: DULOXETINE HCL30 MG PO (00:42)
[2025-05-08] MEDS: HYDROCODONE/APAP 10MG-325MG TAB PO PRN (03:07)
[2025-05-08 06:50] LABS: BASOPHILS % 0.7 % (0.0-1.0); EOSINOPHILS % 2.7 % (0.0-6.0); LYMPHOCYTES % 34.8 % (18.0-39.1); MONOCYTES % 9.0 % (4.4-11.3); NEUTROPHILS % 52.6 % (38.7-80.0); RED CELL DISTRIBUTION WIDTH 12.0 % (11.7-14.4)
[2025-05-08 07:15] LABS: EST GLOMERULAR FILTRATION RATE 112.0 ML/MIN (>=60)
[2025-05-08] MEDS ORDERED: DULOXETINE HCL 30 MG DELAYED RELEASE PO SCH (13:00)
[2025-05-08] MEDS: BUPROPION HCL 150 MG TABCR PO SCH ×2 (13:32→13:33)
[2025-05-08] MEDS: DULOXETINE HCL 30 MG DELAYED RELEASE PO SCH (13:55)
[2025-05-08] MEDS: METHOCARBAMOL 500 MG TAB PO PRN (17:45)
[2025-05-08] MEDS: DEXTROSE 5%/0.45% SOD CHL 1,000 ML IV SCH (22:17)
[2025-05-09] VITALS (9 sets, daily range): BP systolic 102–126; BP diastolic 66–87; PULSE 69–88; RESP 17–19; TEMP 97.5–98.1; O2SAT 95–100
[2025-05-09] MEDS ORDERED: DICYCLOMINE HCL 20 MG TAB PO PRN (00:45)
[2025-05-09 06:42] LABS: BASOPHILS % 0.8 % (0.0-1.0); EOSINOPHILS % 5.8 % (0.0-6.0); LYMPHOCYTES % 34.3 % (18.0-39.1); MONOCYTES % 8.3 % (4.4-11.3); NEUTROPHILS % 50.5 % (38.7-80.0); RED CELL DISTRIBUTION WIDTH 12.0 % (11.7-14.4)
[2025-05-09 07:02] LABS: INR 0.94
[2025-05-09 07:10] LABS: EST GLOMERULAR FILTRATION RATE 111.0 ML/MIN (>=60)
[2025-05-09] MEDS: TAMSULOSIN HCL 0.4 MG CAP PO SCH (08:51)
[2025-05-09] MEDS: ALLOPURINOL 100 MG TAB PO SCH (08:53)
[2025-05-09] MEDS: DEXTROSE 50% SYRINGE 50 ML IV PRN (08:55)
[2025-05-09] MEDS ORDERED: OXYBUTYNIN CHLORIDE 5 MG TAB PO SCH (09:00)
[2025-05-09] MEDS: OXYCODONE/ACETAMINOPHEN 5-325 1 EACH TABLET PO PRN (13:31)
[2025-05-09] MEDS: DEXTROSE 5% 1,000 ML IV SCH (13:53)
[2025-05-09] MEDS: GLUCAGON FOR INJ 1 MG VIAL IV ONE (13:53)
[2025-05-09] MEDS: METOCLOPRAMIDE HCL 10 MG/2ML VIAL IV SCH (23:58)
[2025-05-10] VITALS (7 sets, daily range): BP systolic 99–114; BP diastolic 66–81; PULSE 75–98; RESP 17–20; TEMP 97.4–98.2; O2SAT 95–100
[2025-05-10] MEDS: DICYCLOMINE HCL 20 MG TAB PO SCH (08:57)
[2025-05-10] MEDS: BISACODYL 10 MG SUPP PR SCH (21:00)
[2025-05-10] MEDS: MAGNESIUM HYDROXIDE 30 ML UDC PO STA (23:07)
[2025-05-11] VITALS (8 sets, daily range): BP systolic 95–122; BP diastolic 61–77; PULSE 87–109; RESP 16–18; TEMP 97.6–98.4; O2SAT 97–100
[2025-05-11 06:57] LABS: EST GLOMERULAR FILTRATION RATE 102.0 ML/MIN (>=60)
[2025-05-11] MEDS: BUPROPION HCL 150 MG TABCR PO SCH (09:20)
[2025-05-11 18:53] LABS: BASOPHILS % 0.5 % (0.0-1.0); EOSINOPHILS % 6.9 % (0.0-6.0); LYMPHOCYTES % 25.6 % (18.0-39.1); MONOCYTES % 8.4 % (4.4-11.3); NEUTROPHILS % 58.4 % (38.7-80.0); RED CELL DISTRIBUTION WIDTH 11.9 % (11.7-14.4)
[2025-05-11] MEDS ORDERED: GLUCAGON FOR INJ 1 MG VIAL IM PRN (19:45)
[2025-05-11] MEDS: METOCLOPRAMIDE HCL 10 MG TAB PO SCH (21:06)
[2025-05-12 03:21] VITALS: BP 105/61; PULSE 81; RESP 18; TEMP 97.6; O2SAT 99
[2025-05-12 06:53] LABS: EST GLOMERULAR FILTRATION RATE 92.0 ML/MIN (>=60)
[2025-05-12 08:00] VITALS: BP 112/72; PULSE 69; RESP 20; TEMP 97.5; O2SAT 99
[2025-05-12 08:40] VITALS: BP 107/68; PULSE 86; RESP 20; TEMP 98.4; O2SAT 100
[2025-05-12] MEDS: PANTOPRAZOLE SOD 40 MG TABEC PO SCH (09:27)
[2025-05-12 12:25] VITALS: BP 113/76; PULSE 91; RESP 18; TEMP 98.3; O2SAT 99
[2025-05-12 16:47] VITALS: BP 102/64; PULSE 88; RESP 20; TEMP 98.2; O2SAT 98
[2025-05-13 07:13] LABS: HEPATITIS A ANTIBODY IGM (P) Negative; HEPATITIS B CORE IGM (P) Negative; HEPATITIS B SURFACE AG (P) Negative
[2025-05-13 07:14] LABS: FOLATE (REF LAB) >20.0
== END 2025-05-12 16:00 | disposition home or self-care (01) | DRG 394 ==
LOC: ER 19:00 → ERHOLD 21:24 → MED/SURG3 23:24
PROVIDERS: ADMIT Internal Medicine; ATTEND Internal Medicine
DX: K46.9 Unspecified abdominal hernia without obstruction or gangrene (principal); R18.8 Other ascites; R74.01 Elevation of levels of liver transaminase levels; R10.9 Unspecified abdominal pain; I10 Essential (primary) hypertension; E16.2 Hypoglycemia, unspecified; J45.909 Unspecified asthma, uncomplicated; G43.909 Migraine, unspecified, not intractable, without status migrainosus; K21.9 Gastro-esophageal reflux disease without esophagitis; E66.01 Morbid (severe) obesity due to excess calories; F41.8 Other specified anxiety disorders; D64.9 Anemia, unspecified; D69.6 Thrombocytopenia, unspecified; D72.819 Decreased white blood cell count, unspecified; K59.00 Constipation, unspecified; Z90.49 Acquired absence of other specified parts of digestive tract; Z87.442 Personal history of urinary calculi; Z87.440 Personal history of urinary (tract) infections; Z86.718 Personal history of other venous thrombosis and embolism; Z88.1 Allergy status to other antibiotic agents; Z88.0 Allergy status to penicillin; Z88.2 Allergy status to sulfonamides; Z88.8 Allergy status to other drugs, medicaments and biological substances; Z91.018 Allergy to other foods; Z98.84 Bariatric surgery status; Z79.85 Long-term (current) use of injectable non-insulin antidiabetic drugs; Z68.32 Body mass index [BMI] 32.0-32.9, adult
CPT/HCPCS: 36415; 74177; 74181; 80048; 80053; 80076; 81001; 81025; 82607; 82746; 82948; 83690; 85025; 85610; 99284; J1308; J1610; J1885; J2270; J2405; J2470; J2543; J2765; J7030; J7070; J7799; Q9967